=== PATIENT | female | born 1930 | race Caucasian/White ===

== ENCOUNTER → 2018-07-13 | Outpatient (CLI) | payer MEDICARE | LOC: LAB 11:11 | DX: M50.320 Other cervical disc degeneration, mid-cervical region, unspecified level (principal); M47.813 Spondylosis without myelopathy or radiculopathy, cervicothoracic region; M43.16 Spondylolisthesis, lumbar region; M51.36 Other intervertebral disc degeneration, lumbar region; M51.34 Other intervertebral disc degeneration, thoracic region; M41.86 Other forms of scoliosis, lumbar region; M89.8X1 Other specified disorders of bone, shoulder; Z87.39 Personal history of other diseases of the musculoskeletal system and connective tissue ==

== ENCOUNTER → 2018-10-06 | Outpatient (CLI) | payer MEDICARE, BC ==
[2018-10-06 14:19] LABS: EOS % 0.6 % (1.0-5.0); HEMATOCRIT 37.5 % (37.0-47.0); LYMPH# 0.9 (1.50-4.00); MEAN CELL VOLUME 93 fl (78-100); MEAN CORPUSCULAR HEMOGLOBIN 30 pg (27-31); MEAN CORPUSCULAR HGB CONC 32 g/dL (33-37); MEAN PLATELET VOLUME 9.9 fl (7.4-10.4); MONO # 0.5 (0.20-0.80); NEU # 5.2 (1.40-6.50); PLATELET COUNT 237 K/mm3 (130-400); RED BLOOD COUNT 4.05 M/mm3 (4.10-5.30); RED CELL DISTRIBUTION WIDTH 14.7 % (11.5-14.5); WHITE BLOOD COUNT 6.8 K/mm3 (4.8-10.8)
[2018-10-06 15:00] LABS: ALBUMIN 4.1 g/dL (3.4-4.8); CALCIUM 10.3 mg/dL (8.3-10.5); POTASSIUM 3.9 mmol/L (3.5-5.1); TOTAL BILIRUBIN 0.4 mg/dL (0.2-1.2); TOTAL PROTEIN 7.5 g/dL (6.2-8.1)
[2018-10-06 15:09] LABS: URINE APPEARANCE HAZY; URINE COLOR YELLOW
[2018-10-06 15:10] LABS: URINE BILIRUBIN NEGATIVE (NEGATIVE); URINE GLUCOSE NEGATIVE (NEGATIVE); URINE KETONE NEGATIVE (NEGATIVE); URINE PROTEIN(semi-quant) TRACE mg/dL (NEGATIVE); URINE UROBILINOGEN NORMAL (NORMAL)
[2018-10-06 15:11] LABS: URINE BLOOD TRACE (NEGATIVE); URINE LEUKOCYTE ESTERASE 1+ (NEGATIVE); URINE NITRATE NEGATIVE (NEGATIVE)
== END ==
LOC: LAB 13:54
PROVIDERS: Physician Assistant
DX: I51.9 Heart disease, unspecified (principal); E11.9 Type 2 diabetes mellitus without complications; E03.9 Hypothyroidism, unspecified; M81.0 Age-related osteoporosis without current pathological fracture; Z79.01 Long term (current) use of anticoagulants; G47.00 Insomnia, unspecified

== ENCOUNTER 2018-10-12 07:20 | Emergency (ER) | payer MEDICARE, BC ==
[~2018-10-12] VITALS: Ht 152.4 cm; Wt 59.5 kg
[2018-10-12] MEDS ORDERED: METFORMIN HYD1000 MG PO (08:24)
[2018-10-12] MEDS ORDERED: ATORVASTATIN CA40 MG PO (08:25)
[2018-10-12] MEDS ORDERED: AMIODARONE200 MG PO (08:25)
[2018-10-12] MEDS ORDERED: LEVOTHYROXINE0.05 MG PO (08:25)
[2018-10-12] MEDS ORDERED: ALENDRONATE SOD70 MG PO (08:26)
[2018-10-12] MEDS ORDERED: MELOXICAM7.5 MG PO (08:26)
[2018-10-12] MEDS ORDERED: JANUVIA 100MG100 MG PO (08:28)
[2018-10-12] MEDS ORDERED: ELIQUIS5 MG PO (08:28)
[2018-10-12] MEDS ORDERED: COQ-10100 MG PO (08:29)
[2018-10-12] MEDS ORDERED: NATURE'S BOUNTY1 TAB PO (08:30)
[2018-10-12] MEDS ORDERED: JOINT SUPPORT1 EACH PO (08:30)
[2018-10-12] MEDS ORDERED: VITAMIN B12-FO1 EACH PO (08:32)
[2018-10-12] MEDS ORDERED: LUBRICANT EYE15 M1 OP (08:33)
[2018-10-12 08:47] LABS: CALCIUM 9.6 mg/dL (8.3-10.5); POTASSIUM 3.7 mmol/L (3.5-5.1)
[2018-10-12 09:13] LABS: URINE APPEARANCE CLEAR; URINE BILIRUBIN NEGATIVE (NEGATIVE); URINE BLOOD TRACE (NEGATIVE); URINE COLOR YELLOW; URINE GLUCOSE NEGATIVE (NEGATIVE); URINE KETONE NEGATIVE (NEGATIVE); URINE LEUKOCYTE ESTERASE NEGATIVE (NEGATIVE); URINE NITRATE NEGATIVE (NEGATIVE); URINE PROTEIN(semi-quant) NEGATIVE (NEGATIVE); URINE UROBILINOGEN NORMAL (NORMAL)
[2018-10-12 09:30] VITALS: BP 159/67
== END 2018-10-12 09:31 | disposition home or self-care (01) ==
LOC: ED 07:20
PROVIDERS: Nurse Practitioner Primary Care
DX: G47.00 Insomnia, unspecified (principal); G89.29 Other chronic pain; M54.9 Dorsalgia, unspecified; I48.91 Unspecified atrial fibrillation; E11.9 Type 2 diabetes mellitus without complications; I10 Essential (primary) hypertension; G51.0 Bell's palsy; Z90.49 Acquired absence of other specified parts of digestive tract; Z98.890 Other specified postprocedural states; Z79.01 Long term (current) use of anticoagulants; Z87.448 Personal history of other diseases of urinary system

== ENCOUNTER 2018-10-19 08:29 | Emergency (ER) | payer MEDICARE, BC ==
[~2018-10-19] VITALS: Wt 58.0 kg
[~2018-10-19 08:29] MED LIST: ALENDRONATE SOD70 MG PO; AMIODARONE200 MG PO; ATORVASTATIN CA40 MG PO; COQ-10100 MG PO; ELIQUIS5 MG PO; JANUVIA 100MG100 MG PO; JOINT SUPPORT1 EACH PO; LEVOTHYROXINE0.05 MG PO; LUBRICANT EYE15 M1 OP; MELOXICAM7.5 MG PO; METFORMIN HYD1000 MG PO; NATURE'S BOUNTY1 TAB PO; VITAMIN B12-FO1 EACH PO
[2018-10-19] MEDS ORDERED: TYLENOL ARTHRI650 M2 PO (08:53)
[2018-10-19] MEDS ORDERED: MELATONIN1 MG (08:53)
[2018-10-19 09:19] LABS: EOS # 0.1 (0.04-0.40); EOS % 1.3 % (1.0-5.0); HEMATOCRIT 34.1 % (37.0-47.0); HEMOGLOBIN 10.8 g/dL (12.5-16.0); MEAN CELL VOLUME 93 fl (78-100); MEAN CORPUSCULAR HEMOGLOBIN 29 pg (27-31); MEAN CORPUSCULAR HGB CONC 32 g/dL (33-37); MEAN PLATELET VOLUME 9.5 fl (7.4-10.4); MONO # 0.6 (0.20-0.80); NEU # 3.6 (1.40-6.50); PLATELET COUNT 233 K/mm3 (130-400); RED BLOOD COUNT 3.67 M/mm3 (4.10-5.30); RED CELL DISTRIBUTION WIDTH 14.4 % (11.5-14.5); WHITE BLOOD COUNT 5.2 K/mm3 (4.8-10.8)
[2018-10-19 09:45] LABS: ALBUMIN 3.7 g/dL (3.4-4.8); ALT/SGPT 12 U/L (0-55); AST-SGOT 14 U/L (5-34); CALCIUM 9.7 mg/dL (8.3-10.5); CARBON DIOXIDE 27 mmol/L (23-31); GLUCOSE 155 mg/dL (65-105); POTASSIUM 4.2 mmol/L (3.5-5.1); SODIUM 142 mmol/L (136-145); TOTAL BILIRUBIN 0.4 mg/dL (0.2-1.2); TOTAL PROTEIN 6.7 g/dL (6.2-8.1)
[2018-10-19 09:46] LABS: TROPONIN-I < 0.03 ng/mL (<0.030)
[2018-10-19 12:50] VITALS: BP 147/67
== END 2018-10-19 14:07 | disposition home or self-care (01) ==
LOC: ED 08:29
PROVIDERS: Nurse Practitioner Primary Care
DX: I48.2 Chronic atrial fibrillation (principal); E11.9 Type 2 diabetes mellitus without complications; E03.9 Hypothyroidism, unspecified; G51.0 Bell's palsy; Z90.49 Acquired absence of other specified parts of digestive tract; Z79.84 Long term (current) use of oral hypoglycemic drugs

== ENCOUNTER 2018-11-08 08:02 | Emergency (ER) | payer MEDICARE, BC ==
[~2018-11-08] VITALS: Wt 59.1 kg
[~2018-11-08 08:02] MED LIST changes: +MELATONIN1 MG; +TYLENOL ARTHRI650 M2 PO
[2018-11-08 08:46] LABS: EOS # 0.1 (0.04-0.40); EOS % 1.2 % (1.0-5.0); HEMATOCRIT 33.2 % (37.0-47.0); HEMOGLOBIN 10.5 g/dL (12.5-16.0); LYMPH# 0.8 (1.50-4.00); MEAN CELL VOLUME 94 fl (78-100); MEAN CORPUSCULAR HEMOGLOBIN 30 pg (27-31); MEAN CORPUSCULAR HGB CONC 32 g/dL (33-37); MEAN PLATELET VOLUME 9.6 fl (7.4-10.4); MONO # 0.5 (0.20-0.80); NEU # 3.8 (1.40-6.50); PLATELET COUNT 204 K/mm3 (130-400); RED BLOOD COUNT 3.53 M/mm3 (4.10-5.30); WHITE BLOOD COUNT 5.2 K/mm3 (4.8-10.8)
[2018-11-08 09:01] LABS: ALBUMIN 3.6 g/dL (3.4-4.8); POTASSIUM 4.5 mmol/L (3.5-5.1)
[2018-11-08 09:02] LABS: CALCIUM 9.3 mg/dL (8.3-10.5)
[2018-11-08 09:04] LABS: TOTAL PROTEIN 6.6 g/dL (6.2-8.1)
[2018-11-08 09:05] LABS: TOTAL BILIRUBIN 0.6 mg/dL (0.2-1.2)
[2018-11-08 10:14] LABS: URINE APPEARANCE CLEAR; URINE BILIRUBIN NEGATIVE (NEGATIVE); URINE BLOOD NEGATIVE (NEGATIVE); URINE COLOR YELLOW; URINE GLUCOSE 50 mg/dL mg/dL (NEGATIVE); URINE KETONE NEGATIVE (NEGATIVE); URINE LEUKOCYTE ESTERASE NEGATIVE (NEGATIVE); URINE NITRATE NEGATIVE (NEGATIVE); URINE PROTEIN(semi-quant) NEGATIVE (NEGATIVE); URINE UROBILINOGEN NORMAL (NORMAL); URINE WBC 0-1 /hpf (0-3)
[2018-11-08 11:02] VITALS: BP 146/57
== END 2018-11-08 10:57 | disposition home or self-care (01) ==
LOC: ED 08:02
PROVIDERS: Nurse Practitioner Primary Care
DX: T50.995A Adverse effect of other drugs, medicaments and biological substances, initial encounter (principal); I48.91 Unspecified atrial fibrillation; I10 Essential (primary) hypertension; G51.0 Bell's palsy; E11.9 Type 2 diabetes mellitus without complications; Z90.49 Acquired absence of other specified parts of digestive tract; Z79.84 Long term (current) use of oral hypoglycemic drugs